=== PATIENT | male | born 1925 | race Caucasian/White ===

== ENCOUNTER → 2016-07-21 | Outpatient (CLI) | payer MEDICARE, MEDICAID | LOC: YCHH 09:40 | PROVIDERS: ATTEND Family Medicine | DX: I50.9 Heart failure, unspecified (principal); E78.5 Hyperlipidemia, unspecified; D64.9 Anemia, unspecified; N18.2 Chronic kidney disease, stage 2 (mild) ==

== ENCOUNTER 2016-12-05 12:16 | Emergency (ER) | payer MEDICARE, OTHER ==
[2016-12-05 12:37] VITALS: TEMP 98.3
--- NOTE | 2016-12-05 14:01 | RAD ---
EXAM DESCRIPTION: Chest,1 View CLINICAL HISTORY: 89 years, Male, low oxygen sats COMPARISON: Chest x-ray dated 10/18/2015. FINDINGS: A single frontal chest radiograph was performed. The lungs are moderately expanded and clear. The aortic arch is calcified. The costophrenic sulci are sharp. The cardiac silhouette, hilar regions, trachea, soft tissues and bony structures are unremarkable aside from degenerative changes, marked at the shoulders. No significant change since the prior study. IMPRESSION: No acute cardiopulmonary disease. Electronically signed by: Stephanie Mcqueen MD 12/05/2016 2:00 PM CDT
--- NOTE | 2016-12-05 14:29 | CT ---
EXAM DESCRIPTION: Head CLINICAL HISTORY: , Male, weakness TECHNIQUE: 5mm slice thickness axial images through the brain were performed in the absence of intravenous contrast. This exam was performed according to our departmental dose-optimization program which includes use of Automated Exposure Control, adjustment of the mA and/or kV according to patient size and/or use of iterative reconstruction technique. COMPARISON: None. FINDINGS: Involutional changes are present. 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 There are also areas of encephalomalacia in the RIGHT parietal lobe (moderate in size) and LEFT occipital lobe (small). No hemorrhage is identified. The lateral ventricles are not out of proportion to the degree of volume loss. The basal cisterns are patent. NO dense MCA sign. Intact insular cortex. The visualized paranasal sinuses and mastoid air cells are patent. No fracture is identified. Vascular calcifications. IMPRESSION: No acute cortical infarct is detected by noncontrast CT at this time. No hemorrhage. 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 Electronically signed by: Stephanie Mcqueen MD 12/05/2016 2:28 PM CDT
--- NOTE | 2016-12-05 14:52 | ED.PDOC ---
History of Present Illness - General Chief Complaint: General Stated Complaint: weakness Time Seen by Provider: 12/05/16 13:18 Source: patient, family Exam Limitations: no limitations - History of Present Illness Initial Comments: Cruz Dao 89 y/o male with history of previous left cva stated walking outside the [employer] with his walker after attending services complained of both legs were weak and could not walk.No slurred speech no dizziness no syncopal episode,no blurry vision,no chest pains,no sob Timing/Duration: 1-3 hours Severity: moderate Improving Factors: nothing Worsening Factors: movement Associated Symptoms: denies symptoms Allergies/Adverse Reactions: Allergies Levofloxacin [From Levaquin] Allergy (Verified 10/18/15 18:12) Home Medications: Ambulatory Orders Allopurinol [Zyloprim] 100 mg PO BEDTIME 08/19/14 Aspirin [Baby Aspirin] 81 mg PO QD 08/19/14 Cholecalciferol [Vitamin D] 1,000 iu PO DAILY 08/19/14 Folic Acid 800 mcg PO DAILY 08/19/14 Simvastatin 20 mg PO BEDTIME 08/19/14 Warfarin Sodium 3 mg PO CUATE-OTH-DAY 08/19/14 Allopurinol [Zyloprim] 100 mg PO PRN 12/05/16 Oxybutynin Chloride [Oxybutynin Chloride ER] 5 mg PO DAILY 12/05/16 Warfarin Sodium 4 mg PO CUATE-OTH-DAY 12/05/16 Review of Systems - Review of Systems Constitutional: States: weakness EENTM: States: other - hard of hearing Respiratory: States: no symptoms reported Cardiology: States: no symptoms reported Gastrointestinal/Abdominal: States: no symptoms reported Genitourinary: States: no symptoms reported Musculoskeletal: States: no symptoms reported Skin: States: no symptoms reported Neurological: States: other - old cva left Endocrine: States: no symptoms reported Past Medical History (General) - Patient Medical History Hx Seizures: No Hx Stroke: Yes Hx Dementia: No Hx Asthma: No Hx of COPD: No Hx Cardiac Disorders: Yes Hx Congestive Heart Failure: No Hx Pacemaker: No Hx Hypertension: No Hx Thyroid Disease: No Hx Diabetes: No Hx Gastroesophageal Reflux: No 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 Hx Cancer: No Hx of HIV: No Hx Hepatitis C: No Hx MRSA: No Surgical History: coronary bypass surgery, other - carotid endarterectomy - Vaccination History Hx Tetanus, Diphtheria Vaccination: No Hx Influenza Vaccination: Yes Hx Pneumococcal Vaccination: Yes - Social History Hx Tobacco Use: Yes Hx Alcohol Use: No Hx Substance Use: No Hx Substance Use Treatment: No Hx Depression: No Hx Physical Abuse: No Hx Emotional Abuse: No - Activities of Daily Living Patient Lives Alone: No - family Grooming Ability: Independent Eating (Feeding) Ability: Independent Toileting Ability: Standby Assistance Family Medical History - Family History Mother Family History: No Known Hx Family Asthma: No Hx Family Congestive Heart Failure: No Physical Exam - Physical Exam General Appearance: Alert, No apparent distress Eye Exam: bilateral normal Ears, Nose, Throat: normal ENT inspection, normal pharynx, hearing decreased - wears hearing aids Neck: non-tender, carotid bruit - bilateral Respiratory: chest non-tender, lungs clear, normal breath sounds, no respiratory distress Cardiovascular/Chest: normal peripheral pulses, regular rate, rhythm, no edema, no JVD, no murmur Peripheral Pulses: radial,right: 2+, radial,left: 2+ Gastrointestinal/Abdominal: normal bowel sounds, non tender, soft, no organomegaly, no pulsatile mass Back Exam: normal inspection, no CVA tenderness, no vertebral tenderness Extremity: normal range of motion, non-tender, no pedal edema 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, no motor/sensory deficits, alert, normal mood/affect, oriented x 3, other - negative pronator drift Skin Exam: normal color, warm/dry Lymphatic: no adenopathy Progress - Results/Orders Results/Orders: Laboratory Results WBC 8.8 K/mm3 (4.8-10.8) 12/05/16 13:23 RBC 4.65 M/mm3 (4.70-6.10) L 12/05/16 13:23 Hgb 14.5 gm/dL (14.0-18.0) 12/05/16 13:23 Hct 44.3 % (42.0-52.0) 12/05/16 13:23 MCV 95.1 fl (80.0-94.0) H 12/05/16 13:23 MCH 31.1 pg (27.0-31.0) H 12/05/16 13:23 MCHC 32.7 g/dL (33.0-37.0) L 12/05/16 13:23 RDW 15.3 % (11.5-14.5) H 12/05/16 13:23 Plt Count 156 K/mm3 (130-400) 12/05/16 13:23 MPV 7.7 fl (7.40-10.4) 12/05/16 13:23 Absolute Neuts (auto) 7.80 K/uL (1.8-6.8) H 12/05/16 13:23 Absolute Lymphs (auto) 0.40 K/uL (1.0-3.4) L 12/05/16 13:23 Absolute Monos (auto) 0.40 K/uL (0.2-0.8) 12/05/16 13:23 Absolute Eos (auto) 0.10 K/uL (0.0-0.4) 12/05/16 13:23 Absolute Basos (auto) 0.10 K/uL (0.0-0.1) 12/05/16 13:23 Neutrophils % 89.2 % (42.0-78.0) H 12/05/16 13:23 Lymphocytes % 4.0 % (20.0-50.0) L 12/05/16 13:23 Monocytes % 4.7 % (2.0-9.0) 12/05/16 13:23 Eosinophils % 0.9 % (1.0-5.0) L 12/05/16 13:23 Basophils % 1.2 % (0.0-2.0) 12/05/16 13:23 PT 36.2 SECONDS (9.4-12.5) H* 12/05/16 13:23 INR 3.240 12/05/16 13:23 PTT (SP) 41.6 SECONDS (25.1-36.5) H 12/05/16 13:23 D-Dimer, Quantitative 584 ng/mL (0-230) H* 12/05/16 13:33 Sodium 138 mmol/L (135-145) 12/05/16 13:23 Potassium 4.5 mmol/L (3.6-5.0) 12/05/16 13:23 Chloride 106 mmol/L (101-111) 12/05/16 13:23 Carbon Dioxide 27 mmol/L (21-31) 12/05/16 13:23 Anion Gap 9.5 (12-18) L 12/05/16 13:23 BUN 31 mg/dL (7-18) H 12/05/16 13:23 Creatinine 1.84 mg/dL (0.6-1.3) H 12/05/16 13:23 BUN/Creatinine Ratio 16.8 (10-20) 12/05/16 13:23 Random Glucose 105 mg/dL (70-105) 12/05/16 13:23 Serum Osmolality 282.6 mOsm/L (275-295) 12/05/16 13:23 Calcium 8.8 mg/dL (8.4-10.2) 12/05/16 13:23 Total Bilirubin 0.5 mg/dL (0.2-1.0) 12/05/16 13:23 AST 18 IU/L (10-42) 12/05/16 13:23 ALT 17 IU/L (10-60) 12/05/16 13:23 Alkaline Phosphatase 69 IU/L (42-121) 12/05/16 13:23 Creatine Kinase 33 IU/L (38-174) L 12/05/16 13:33 CK-MB (CK-2) 2.2 ng/mL (0.0-4.4) 12/05/16 13:33 CK-MB (CK-2) % Not Reportable 12/05/16 13:33 Troponin I 0.02 ng/mL (0.01-0.05) 12/05/16 13:33 B-Natriuretic Peptide 63.6 pg/ml (0-100) 12/05/16 13:33 Serum Total Protein 6.7 gm/dL (6.4-8.2) 12/05/16 13:23 Albumin 3.4 g/dl (3.2-5.5) 12/05/16 13:23 Globulin 3.3 gm/dL (2.3-3.5) 12/05/16 13:23 Albumin/Globulin Ratio 1.0 (1.1-1.9) L 12/05/16 13:23 Discuss admission to hospital for observation but patient and family declined.Wants to stay home. - EKG/XRAY/CT CT Ordered: Yes - head-OLD right mca and left console attendant infarct/radiologist Departure - Departure Clinical Impression: Weakness of both lower extremities, History of cerebrovascular accident (CVA) with residual deficit, Solitary kidney, congenital Time of Disposition: 15:43 Disposition: Discharge to Home or Self Care Condition: Fair Departure Forms: ED Discharge - Pt. Copy, Patient Portal Self Enrollment Activity: ambulate only with walker Referrals: Fco Geronimo MD [Primary Care Provider] - 1-2 Weeks Home Medications: Ambulatory Orders Allopurinol [Zyloprim] 100 mg PO BEDTIME 08/19/14 Aspirin [Baby Aspirin] 81 mg PO QD 08/19/14 Cholecalciferol [Vitamin D] 1,000 iu PO DAILY 08/19/14 Folic Acid 800 mcg PO DAILY 08/19/14 Simvastatin 20 mg PO BEDTIME 08/19/14 Warfarin Sodium 3 mg PO CUATE-OTH-DAY 08/19/14 Allopurinol [Zyloprim] 100 mg PO PRN 12/05/16 Oxybutynin Chloride [Oxybutynin Chloride ER] 5 mg PO DAILY 12/05/16 Warfarin Sodium 4 mg PO CUATE-OTH-DAY 12/05/16 Additional Instructions: SKIP THE WARFARIN DOSE FOR TONIGHT ONLY;FOLLOW UP WITH PRIMARY MD IN AM CALL FOR APPOINTMENT;RETURN TO EMERGENCY ROOM IF SYMPTOMS WORSENS;CONTINUE WITH REST OF HOME MEDICATIONS
[2016-12-05 16:05] VITALS: BP 136/86; O2SAT 95
== END 2016-12-05 16:05 | disposition home or self-care (01) ==
LOC: ER 12:16
DX: R53.1 Weakness (principal); I69.90 Unspecified sequelae of unspecified cerebrovascular disease; Q60.0 Renal agenesis, unilateral; Z87.891 Personal history of nicotine dependence; Z95.1 Presence of aortocoronary bypass graft; Z79.82 Long term (current) use of aspirin; Z79.01 Long term (current) use of anticoagulants

== ENCOUNTER → 2017-01-19 | Outpatient (CLI) | payer MEDICARE, MEDICAID | END | disposition home or self-care (01) | LOC: YCHH 09:40 | PROVIDERS: ATTEND Family Medicine | DX: M62.81 Muscle weakness (generalized) (principal); I50.9 Heart failure, unspecified; E78.5 Hyperlipidemia, unspecified; D64.9 Anemia, unspecified ==

== ENCOUNTER → 2017-02-11 | Outpatient (CLI) | payer MEDICARE, MEDICAID | LOC: YCHH 09:08 | PROVIDERS: ATTEND Family Medicine | DX: I50.9 Heart failure, unspecified (principal); R53.1 Weakness; R26.89 Other abnormalities of gait and mobility; N39.0 Urinary tract infection, site not specified ==